=== PATIENT | male | born 1945 | race Caucasian/White ===

== ENCOUNTER 2016-05-08 11:13 | Outpatient (CLI) | payer MEDICARE ==
--- NOTE | 2016-05-08 11:55 | DIAGNOSTIC IMAGING REPORT ---
PROCEDURE: XR CHEST 2 VIEW INDICATION: COUGH TECHNIQUE: PA and lateral views. COMPARISON: Chest 10/01/2009 FINDINGS: Left lower lobe infiltrate. Right lung is clear Heart and mediastinum are normal. Thorax is normal. IMPRESSION: 1. left lower lobe infiltrate.
== END 2016-05-08 23:00 ==
LOC: XR SRH 11:13
DX: R91.8 Other nonspecific abnormal finding of lung field (principal); I48.91 Unspecified atrial fibrillation

== ENCOUNTER → 2016-06-14 | Outpatient (CLI) | payer MEDICARE ==
--- NOTE | 2016-06-14 11:44 | DIAGNOSTIC IMAGING REPORT ---
PROCEDURE: XR CHEST 2 VIEW INDICATION: PNEUMONIA TECHNIQUE: Two views. COMPARISON: 05/08/2016 FINDINGS: The cardiomediastinal contour is stable, within normal limits. The central vasculature is not congested. The lungs are clear without focal consolidation, pleural effusion or pneumothorax. The visualized osseous structures very demonstrate healed left rib fractures. IMPRESSION: 1. Interval clearance of small retrocardiac consolidation. 2. No acute process. 3. Multiple remote left rib fractures.
== END ==
LOC: XR SRH 11:20
DX: J18.9 Pneumonia, unspecified organism (principal); S22.42XA Multiple fractures of ribs, left side, initial encounter for closed fracture